=== PATIENT | male | born 1950 | race Hispanic/Latino ===

== ENCOUNTER 2018-07-02 22:34 | Emergency (ER) | payer BC ==
[2018-07-02] MEDS ORDERED: Adacel (T-DAP) 0.5 ML VIAL ONE (22:51)
[2018-07-02] MEDS ORDERED: Lidocaine 1% (PF) 30 ML VIAL ONE (22:51)
[2018-07-02] MEDS ORDERED: Bacitracin Zinc 1 Packet ONE (23:48)
== END 2018-07-03 00:04 | disposition home or self-care (01) ==
LOC: ERS 22:34
DX: S61.211A Laceration without foreign body of left index finger without damage to nail, initial encounter (principal); W26.0XXA Contact with knife, initial encounter; Z23 Encounter for immunization
CPT/HCPCS: 12002; 90471; 90715; J2001

== ENCOUNTER 2025-11-09 08:54 | Emergency (ER) | payer BC, OTHER | END 2025-11-09 12:20 | disposition home or self-care (01) | LOC: ERS 08:54 | DX: S06.0X0A Concussion without loss of consciousness, initial encounter (principal); S00.81XA Abrasion of other part of head, initial encounter; W01.198A Fall on same level from slipping, tripping and stumbling with subsequent striking against other object, initial encounter | CPT/HCPCS: 70450; 72125 ==